=== PATIENT | female | born 1940 ===

== ENCOUNTER 2020-06-19 08:58 | Day surgery (SDC) | payer OTHER | END 2020-06-19 13:40 | disposition home or self-care (01) | LOC: AMB-ENDOS 08:58 | PROVIDERS: ATTEND Colon & Rectal Surgery | DX: K62.1 Rectal polyp (principal); Z12.11 Encounter for screening for malignant neoplasm of colon; Z20.822 Contact with and (suspected) exposure to COVID-19; K64.8 Other hemorrhoids ==

== ENCOUNTER 2020-07-03 07:14 | Outpatient (CLI) | payer OTHER | END 2020-07-03 07:31 | disposition home or self-care (01) | LOC: TOM 07:14 | PROVIDERS: ATTEND Colon & Rectal Surgery | DX: K62.5 Hemorrhage of anus and rectum (principal); R19.4 Change in bowel habit ==